=== PATIENT | male | born 1950 | race Caucasian/White ===

== ENCOUNTER 2021-03-31 13:10 | Inpatient (IN) | payer OTHER ==
[~2021-03-31] VITALS: Ht 175.3 cm; Wt 117.0 kg
[2021-03-31] MEDS ORDERED: CARVEDILOL25 MG PO (16:05)
[2021-03-31] MEDS ORDERED: LANTUS SOL100 UNIT/1 SQ ×2 (16:06→16:07)
[2021-03-31] MEDS ORDERED: AMLODIPINE BESY10 MG PO (16:07)
[2021-03-31] MEDS ORDERED: ASPIRIN EC81 MG PO (16:07)
[2021-03-31] MEDS ORDERED: NITROGLYCERIN0.4 MG SL (16:08)
[2021-03-31] MEDS ORDERED: LOSARTAN-HCTZ1 EAC2 PO (16:08)
[2021-03-31] MEDS ORDERED: ISOSORBIDE MONO60 MG PO (16:08)
[2021-03-31] MEDS ORDERED: LEVOTHYROXINE75 MCG PO (16:08)
[2021-03-31 23:06] LABS: HEMOGLOBIN 13.8 gm/dl (14.0-17.5); RED BLOOD COUNT 4.97 M/UL (4.20-5.50); WHITE BLOOD COUNT 11.1 K/UL (4.5-11.0)
[2021-03-31 23:28] LABS: BUN/CREATININE RATIO 15 (0-10)
[2021-04-01 07:31] LABS: HEMOGLOBIN 13.4 gm/dl (14.0-17.5); RED BLOOD COUNT 5.02 M/UL (4.20-5.50); WHITE BLOOD COUNT 12.1 K/UL (4.5-11.0)
[2021-04-01 08:05] LABS: BUN/CREATININE RATIO 13 (0-10)
[2021-04-02 04:05] LABS: HEMOGLOBIN 13.3 gm/dl (14.0-17.5); RED BLOOD COUNT 4.77 M/UL (4.20-5.50)
[2021-04-03 03:44] LABS: HEMOGLOBIN 11.9 gm/dl (14.0-17.5); RED BLOOD COUNT 4.31 M/UL (4.20-5.50); WHITE BLOOD COUNT 9.9 K/UL (4.5-11.0)
[2021-04-03 22:50] LABS: HEMOGLOBIN 12.2 gm/dl (14.0-17.5); RED BLOOD COUNT 4.38 M/UL (4.20-5.50); WHITE BLOOD COUNT 10.6 K/UL (4.5-11.0)
[2021-04-04 03:32] LABS: HEMOGLOBIN 11.8 gm/dl (14.0-17.5); RED BLOOD COUNT 4.26 M/UL (4.20-5.50); WHITE BLOOD COUNT 9.8 K/UL (4.5-11.0)
[2021-04-05 04:20] LABS: HEMOGLOBIN 11.3 gm/dl (14.0-17.5); RED BLOOD COUNT 4.05 M/UL (4.20-5.50); WHITE BLOOD COUNT 10.2 K/UL (4.5-11.0)
[2021-04-05] MEDS ORDERED: ELIQUIS 5 MG TAB5 MG PO (11:59)
[2021-04-05] MEDS ORDERED: LIPITOR TAB 2020 MG PO (12:00)
[2021-04-05] MEDS ORDERED: BRILINTA 90 MG90 MG PO (12:01)
[2021-04-05] MEDS ORDERED: COZAAR 50MG TAB50 MG GT (12:01)
== END 2021-04-05 12:12 | disposition home or self-care (01) | DRG 247 ==
LOC: CCU 13:10 → PROG CARE 15:12
PROVIDERS: Internal Medicine; ADMIT Internal Medicine Interventional Cardiology
PROC: 027034Z Dilation of Coronary Artery, One Artery with Drug-eluting Intraluminal Device, Percutaneous Approach (ICD-10-PCS; principal; 2021-03-31)
PROC: B2111ZZ Fluoroscopy of Multiple Coronary Arteries using Low Osmolar Contrast (ICD-10-PCS; 2021-03-31)
PROC: 4A023N7 Measurement of Cardiac Sampling and Pressure, Left Heart, Percutaneous Approach (ICD-10-PCS; 2021-03-31)
DX: I21.09 ST elevation (STEMI) myocardial infarction involving other coronary artery of anterior wall (principal); N17.9 Acute kidney failure, unspecified; I25.10 Atherosclerotic heart disease of native coronary artery without angina pectoris; M19.90 Unspecified osteoarthritis, unspecified site; Z20.822 Contact with and (suspected) exposure to COVID-19; I10 Essential (primary) hypertension; E78.5 Hyperlipidemia, unspecified; E11.9 Type 2 diabetes mellitus without complications; G43.909 Migraine, unspecified, not intractable, without status migrainosus; E66.9 Obesity, unspecified; I48.91 Unspecified atrial fibrillation; M79.81 Nontraumatic hematoma of soft tissue; I16.0 Hypertensive urgency; Z95.5 Presence of coronary angioplasty implant and graft; Z86.73 Personal history of transient ischemic attack (TIA), and cerebral infarction without residual deficits; Z83.3 Family history of diabetes mellitus; Z82.49 Family history of ischemic heart disease and other diseases of the circulatory system; Z88.8 Allergy status to other drugs, medicaments and biological substances; Z79.01 Long term (current) use of anticoagulants; Z68.38 Body mass index [BMI] 38.0-38.9, adult
CPT/HCPCS: 0240U; 36415; 80048; 80053; 82550; 82553; 82962; 83036; 83735; 83880; 84100; 84439; 84443; 84484; 85025; 85027; 85347; 93005; 97161; 99152; 99153; C1725; C1769; C1874; C1887; C1894; C9600; J0360; J0461; J1170; J1644; J2250; J2370; J2405; J2550; J3010; J3246; J3480; J7040; Q9965